=== PATIENT | male | born 1960 | race Caucasian/White ===

== ENCOUNTER 2020-06-14 10:54 | Inpatient (IN) | payer OTHER ==
[~2020-06-14] VITALS: Ht 172.7 cm; Wt 73.5 kg
[2020-06-14] MEDS ORDERED: PLAVIX75 MG PO (11:35)
[2020-06-14] MEDS ORDERED: ASPIRIN EC81 MG PO (11:35)
[2020-06-14] MEDS ORDERED: ATORVASTATIN CA40 MG PO (11:35)
[2020-06-14 11:36] LABS: HEMOGLOBIN 14.6 gm/dl (14.0-17.5); RED BLOOD COUNT 4.47 M/UL (4.20-5.50); WHITE BLOOD COUNT 9.7 K/UL (4.5-11.0)
[2020-06-14] MEDS ORDERED: IBUPROFEN200 M1 PO (11:36)
[2020-06-14] MEDS ORDERED: LISINOPRIL2.5 MG PO (11:36)
[2020-06-14] MEDS ORDERED: GLUCOPHAGE 500500 MG PO (11:36)
[2020-06-14] MEDS ORDERED: PROCARDIA XL90 MG PO (11:37)
[2020-06-14 12:01] LABS: BUN/CREATININE RATIO 15 (0-10)
[2020-06-14] MEDS ORDERED: HYDROCODON-ACE1 EAC4 PO (13:55)
[2020-06-15 06:02] LABS: HEMOGLOBIN 14.5 gm/dl (14.0-17.5); RED BLOOD COUNT 4.54 M/UL (4.20-5.50); WHITE BLOOD COUNT 9.9 K/UL (4.5-11.0)
[2020-06-15 06:27] LABS: BUN/CREATININE RATIO 16 (0-10)
--- NOTE | 2020-06-15 10:50 | NUR ---
0957 CALLED LAB TO CHECK ON PTTHP FOR PATIENT SAID HE WAS RUNNING IT NOW.
--- NOTE | 2020-06-15 17:55 | NUR ---
1000- SPOKE WITH [facility] ABOUT THE PTTHP DUE . THEY ARE SHORT HANDED AND WILL HAVE RESULTS SOON POSSIBLE.
--- NOTE | 2020-06-15 17:56 | NUR ---
8938- SPOKE WITH LAB ABOUT NOT HAVING THE PTTHP FOR THE HEPRIN PROTOCOL IT WAS DRAWN AT 1630 BUT STILL NOT RESULTS YET. PER LAB NOT RUN YET WILL GET RESULTS SOON POSSIBLE
[2020-06-16 10:32] LABS: HEMOGLOBIN 15.1 gm/dl (14.0-17.5); RED BLOOD COUNT 4.72 M/UL (4.20-5.50)
[2020-06-16 10:33] LABS: WHITE BLOOD COUNT 12.7 K/UL (4.5-11.0)
[2020-06-16 10:47] LABS: BUN/CREATININE RATIO 19 (0-10)
[2020-06-17 06:18] LABS: RED BLOOD COUNT 4.69 M/UL (4.20-5.50)
[2020-06-17 06:28] LABS: WHITE BLOOD COUNT 8.7 K/UL (4.5-11.0)
[2020-06-17 06:59] LABS: BUN/CREATININE RATIO 25 (0-10)
[2020-06-18 06:25] LABS: HEMOGLOBIN 13.8 gm/dl (14.0-17.5); RED BLOOD COUNT 4.32 M/UL (4.20-5.50); WHITE BLOOD COUNT 9.7 K/UL (4.5-11.0)
[2020-06-18 07:12] LABS: BUN/CREATININE RATIO 17 (0-10)
--- NOTE | 2020-06-18 12:20 | NUR ---
PT CAME UP FROM ICU VIA STRETCHER. PT IS STABLE AND RESTING IN THE BED WITH NO COMPLAINTS OF PAIN. WCTM
[2020-06-18] MEDS ORDERED: ELIQUIS 5 MG TAB5 MG PO (15:11)
[2020-06-18] MEDS ORDERED: AUGMENTIN 875-1 EACH PO (15:11)
[2020-06-18] MEDS ORDERED: LOPRESSOR 25 MG25 MG PO (15:11)
[2020-06-18] MEDS ORDERED: PERCOCET 7.5-31 EACH PO ×2 (16:16→16:33)
[2020-06-18] MEDS ORDERED: AMBIEN5 MG PO (16:16)
[2020-06-18] MEDS ORDERED: BETADINE30 ML TOP (16:16)
[2020-06-18] MEDS ORDERED: LISINOPRIL10 MG PO (16:17)
[2020-07-01] MEDS ORDERED: PERCOCET 7.5-31 EACH PO (18:35)
[2020-07-01] MEDS ORDERED: BETAPACE 80MG T80 MG PO (18:35)
[2020-07-01] MEDS ORDERED: CLEOCIN HCL300 MG PO (18:35)
[2020-07-01] MEDS ORDERED: LEVOFLOXACIN500 MG PO (18:35)
== END 2020-06-18 17:30 | disposition home or self-care (01) | DRG 254 ==
LOC: MED SURG 4 10:54 → CCU 06-17 12:32 → M/S 06-18 11:31
PROVIDERS: Internal Medicine; Physician Assistant; Surgery; ADMIT Family Medicine
PROC: 047J3Z1 Dilation of Left External Iliac Artery using Drug-Coated Balloon, Percutaneous Approach (ICD-10-PCS; 2020-06-17)
PROC: B41G1ZZ Fluoroscopy of Left Lower Extremity Arteries using Low Osmolar Contrast (ICD-10-PCS; 2020-06-17)
PROC: B41F1ZZ Fluoroscopy of Right Lower Extremity Arteries using Low Osmolar Contrast (ICD-10-PCS; 2020-06-17)
PROC: 047W3ZZ Dilation of Left Foot Artery, Percutaneous Approach (ICD-10-PCS; principal; 2020-06-17 13:43)
DX: E11.51 Type 2 diabetes mellitus with diabetic peripheral angiopathy without gangrene (principal); R01.1 Cardiac murmur, unspecified; I10 Essential (primary) hypertension; E78.5 Hyperlipidemia, unspecified; F17.210 Nicotine dependence, cigarettes, uncomplicated; Z89.022 Acquired absence of left finger(s); Z98.41 Cataract extraction status, right eye; Z96.1 Presence of intraocular lens; Z79.84 Long term (current) use of oral hypoglycemic drugs; Z79.82 Long term (current) use of aspirin; Z79.899 Other long term (current) drug therapy; Z80.7 Family history of other malignant neoplasms of lymphoid, hematopoietic and related tissues; Z83.6 Family history of other diseases of the respiratory system; Z82.49 Family history of ischemic heart disease and other diseases of the circulatory system; Z83.3 Family history of diabetes mellitus; Z84.89 Family history of other specified conditions; I44.7 Left bundle-branch block, unspecified; I77.1 Stricture of artery; Z20.828 Contact with and (suspected) exposure to other viral communicable diseases; Z88.6 Allergy status to analgesic agent; I70.235 Atherosclerosis of native arteries of right leg with ulceration of other part of foot; E11.42 Type 2 diabetes mellitus with diabetic polyneuropathy; E87.6 Hypokalemia; B35.1 Tinea unguium; G47.00 Insomnia, unspecified; L03.031 Cellulitis of right toe; I08.1 Rheumatic disorders of both mitral and tricuspid valves
CPT/HCPCS: ECHO; 36415; 71045; 73630; 73718; 76000; 78452; 80048; 80053; 80061; 82550; 82553; 82962; 83036; 83605; 83735; 84443; 84484; 85025; 85027; 85610; 85730; 86140; 86850; 86900; 86901; 93005; 93017; 93306; 93926; 99406; A9502; C1725; C1769; C2623; J0690; J0696; J1644; J2001; J2250; J2270; J2405; J2704; J2710; J2720; J2785; J3010; J7030; J7040; J7050; J7120; Q9962; U0002; U0003

== ENCOUNTER → 2020-07-07 | Outpatient (CLI) | payer OTHER ==
[~2020-07-07] MED LIST: AMBIEN5 MG PO; ASPIRIN EC81 MG PO; ATORVASTATIN CA40 MG PO; AUGMENTIN 875-1 EACH PO; BETADINE30 ML TOP; BETAPACE 80MG T80 MG PO; BUPROPION HCL150 MG PO; CLEOCIN HCL300 MG PO; ELIQUIS 5 MG TAB5 MG PO; ELIQUIS5 MG PO; ENOXAPARIN SQ; GLUCOPHAGE 500500 MG PO; HYDROCODON-ACE1 EAC4 PO; IBUPROFEN200 M1 PO; LEVOFLOXACIN500 MG PO; LISINOPRIL10 MG PO; LISINOPRIL2.5 MG PO; LISINOPRIL40 MG PO; LOPRESSOR 25 MG25 MG PO; METFORMIN HCL500 MG PO; METOPROLOL TART25 MG PO; NICOTINE PATCH TP; NICOTINE PATCH1 EAC1 TD; PERCOCET 7.5-31 EACH PO; PLAVIX75 MG PO; PROCARDIA XL90 MG PO; SOTALOL80 MG PO; VIBRAMYCIN 100100 MG PO
== END ==
LOC: WCC 11:00
PROC: 0JBQ0ZZ Excision of Right Foot Subcutaneous Tissue and Fascia, Open Approach (ICD-10-PCS; principal; 2020-07-07)
DX: L97.511 Non-pressure chronic ulcer of other part of right foot limited to breakdown of skin (principal); Z88.4 Allergy status to anesthetic agent

== ENCOUNTER → 2020-07-09 | Outpatient (CLI) | payer OTHER | LOC: WCC 11:02 | DX: S91.104A Unspecified open wound of right lesser toe(s) without damage to nail, initial encounter (principal); X58.XXXA Exposure to other specified factors, initial encounter | CPT/HCPCS: G0463 ==

== ENCOUNTER → 2020-07-14 | Outpatient (CLI) | payer OTHER | LOC: WCC 11:00 | DX: E11.621 Type 2 diabetes mellitus with foot ulcer (principal); L97.519 Non-pressure chronic ulcer of other part of right foot with unspecified severity; E11.51 Type 2 diabetes mellitus with diabetic peripheral angiopathy without gangrene; I70.201 Unspecified atherosclerosis of native arteries of extremities, right leg; F17.290 Nicotine dependence, other tobacco product, uncomplicated; I10 Essential (primary) hypertension ==

== ENCOUNTER → 2020-07-21 | Outpatient (CLI) | payer OTHER | LOC: WCC 11:16 | DX: E11.621 Type 2 diabetes mellitus with foot ulcer (principal); L97.511 Non-pressure chronic ulcer of other part of right foot limited to breakdown of skin | CPT/HCPCS: G0463 ==

== ENCOUNTER → 2020-08-18 | Outpatient (CLI) | payer OTHER ==
[2020-08-18 11:57] LABS: HEMOGLOBIN 16.5 gm/dl (14.0-17.5); RED BLOOD COUNT 5.14 M/UL (4.20-5.50); WHITE BLOOD COUNT 13.2 K/UL (4.5-11.0)
[2020-08-18 12:19] LABS: BUN/CREATININE RATIO 21 (0-10)
== END ==
LOC: OPSV2 11:00
PROVIDERS: Surgery
DX: Z01.818 Encounter for other preprocedural examination (principal)
CPT/HCPCS: 36415; 71046; 80053; 81001; 85025; 85610; 85730; 86850; 86900; 86901; 86920; 93005

== ENCOUNTER 2020-08-19 06:15 | Inpatient (IN) | payer OTHER ==
[~2020-08-19] VITALS: Ht 170.2 cm; Wt 70.3 kg
[~2020-08-19 06:15] MED LIST changes: -BUPROPION HCL150 MG PO; -ELIQUIS5 MG PO; -ENOXAPARIN SQ; -LISINOPRIL40 MG PO; -METFORMIN HCL500 MG PO; -METOPROLOL TART25 MG PO; -NICOTINE PATCH TP; -NICOTINE PATCH1 EAC1 TD; -SOTALOL80 MG PO; -VIBRAMYCIN 100100 MG PO
[2020-08-19] MEDS ORDERED: ASPIRIN EC81 MG PO (08:57)
[2020-08-19] MEDS ORDERED: BUPROPION HCL150 MG PO (08:58)
[2020-08-19] MEDS ORDERED: METOPROLOL TART25 MG PO (08:58)
[2020-08-19] MEDS ORDERED: LISINOPRIL40 MG PO (08:59)
[2020-08-19] MEDS ORDERED: ATORVASTATIN CA40 MG PO (08:59)
[2020-08-19] MEDS ORDERED: METFORMIN HCL500 MG PO (08:59)
[2020-08-19] MEDS ORDERED: SOTALOL80 MG PO (09:00)
[2020-08-19] MEDS ORDERED: ENOXAPARIN SQ (09:01)
[2020-08-19] MEDS ORDERED: ELIQUIS5 MG PO (09:02)
[2020-08-19] MEDS ORDERED: NICOTINE PATCH TP (09:02)
[2020-08-19] MEDS ORDERED: NICOTINE PATCH1 EAC1 TD (18:10)
[2020-08-19 18:41] LABS: HEMOGLOBIN 12.7 gm/dl (14.0-17.5); WHITE BLOOD COUNT 17.1 K/UL (4.5-11.0)
[2020-08-19 18:58] LABS: BUN/CREATININE RATIO 20 (0-10)
[2020-08-19 20:33] LABS: HEMOGLOBIN 12.2 gm/dl (14.0-17.5); RED BLOOD COUNT 3.88 M/UL (4.20-5.50); WHITE BLOOD COUNT 20.9 K/UL (4.5-11.0)
[2020-08-20 05:22] LABS: HEMOGLOBIN 13.1 gm/dl (14.0-17.5); RED BLOOD COUNT 4.19 M/UL (4.20-5.50)
[2020-08-20 05:23] LABS: WHITE BLOOD COUNT 30.3 K/UL (4.5-11.0)
--- NOTE | 2020-08-20 06:51 | NUR ---
PT EXPERIENCED SIGNIFICANT BLOOD LOSS, UNSTABLE BP, POSSIBLE RT GROIN HEMATOMA RADIATING RLQ PAIN AND DIAPHORESIS. IN CONVERSATION MULTIPLE TIMES WITH DR. MANCILLA. ORDERS RECEIVED NUMEROUS TIMES (SEE ORDERS FOR DETAILS) AND DR. MANCILLA CAME BEDSIDE AROUND 0100 TO ASSESS PT AND GIVE FURTHER ORDERS. RT GROIN WOUND WAS UNWRAPPED, REDRESSED AND FURTHER PRESSURE DRESSING WAS APPLIED TO GROIN AREA.
--- NOTE | 2020-08-20 06:54 | NUR ---
AT APPROXIMATELY 1235 DR. MANCILLA WAS CONTACTED R/T POSSIBLE HEMATOMA TO R GROIN. AT HER DIRECTION A PRESSURE DRESSING WAS APPLIED.
[2020-08-21 07:48] LABS: BUN/CREATININE RATIO 21 (0-10)
[2020-08-21 08:29] LABS: HEMOGLOBIN 8.6 gm/dl (14.0-17.5); RED BLOOD COUNT 2.85 M/UL (4.20-5.50); WHITE BLOOD COUNT 12.4 K/UL (4.5-11.0)
[2020-08-22 03:18] LABS: RED BLOOD COUNT 2.58 M/UL (4.20-5.50)
[2020-08-22 03:23] LABS: WHITE BLOOD COUNT 8.6 K/UL (4.5-11.0)
--- NOTE | 2020-08-22 16:00 | NUR ---
DR MANCILLA WAS ATTEMPTED TO BE CALLED AROUND 1230 TO VERIFY THAT THE PATIENT WAS ALLOWED TO BE AMBULATING IN THE ROOM. ONCE I FOUND THAT THE PATIENT WAS ONLY TO BE ON BEDREST FOR ONE NIGHT THE WE THEN STARTED WALKING THE PATIENT. THE PATIENTS RIGHT FOOT AND HIS FOURTH TOE OVER STARTED BLEEDING THROUGH HIS SOCK. I WENT TO CALL A DOCTOR AGAIN TO SEE IF THERE WAS SOMETHING SHE WANTED ME TO DO FOR IT. I CALLED AGAIN AND THE PHONE WENT TO VOICEMAIL LIKE IT DID EARLIER WHEN I CALLED AND THE VLOCEMAIL WAS FULL. I WAS UNABLE TO LEAVE A MESSAGE SO I THEN WENT TO MY EVENT ORGANIZER TO LET HER KNOW THAT WAS THE ONLY DOCTOR ON HIS CASE AND THAT I COULDNT GET AHOLD OF HER FOR THE PATIENTS FOOT. A LAST RESORT I TEXTED THE CELL NUMBER THAT SHE HAD ON FILE. I HAD HER CALL THE HOSPITAL AND THEN I LET HER KNOW WHAT WAS GOING ON. SHE THEN TOLD ME TO CALL THE PHARMACY TO MAKE SURE THAT HER PA CALLED IN HER PRECRIPTIONS IN. AND TO CHANGE THE ADMISSION TO A HOSPITALIST. AND TO CONSULT . SHE MENTIONED THAT THE PATIENT WAS SUPPOSED TO BE GOING HOME TODAY. I LOOKED IN THE CHART AND THERE WAS NO DC ORDERS IN THE CHART. SHE THEN ASKED IF THE PATIENT WANTED TO STAY ANOTHER DAY AND HE SAID HE WOULD FEEL SAFER IF HE GOT TO STAY ANOTHER NIGHT DUE TO HIS FOOT STARTING TO BLEED. I THEN CALLED AND GOT CLEARANCE FROM TO CONSULT AND WHAT TO DO FOR THE CONSULT. DR BAZAN WAS CONSULT AND CALLED ABOUT THE PATIENT AND THE SITUATION.
--- NOTE | 2020-08-22 22:24 | NUR ---
2009- PATIENT IS OOZING BLOOD AT THE RIGHT GROIN SITE. MD ORDERED FOR Q30M CHECKS X3 TIMES WITH BLOOD PRESSURES WELL. PATIENT'S BLEEDING HAS BEEN MARKED, BLOOD PRESSURE SET FOR 30 MINUTES AUTOMATICALLY AND GAUZE APPLIED TO SEE IF BLEEDING WORSENS. AT THIS TIME, PATIENT HAS NO COMPLAINTS AND BLOOD PRESSURE IS 160/78 WITH A MAP OF 99. 2040- NO ADDITIONAL BLEEDING NOTED. PATIENT IS ALERT AND HAS NO COMPLAINTS AT THIS TIME. BLOOD PRESSURE CURRENTLY 134/113 WITH A MAP OF 118. 2110- PATIENT ALERT AND ORIENTED WITH NO COMPLAINTS STATED. SITE HAS NO ADDITIONAL BLEEDING OUTSIDE OF MARKING OR ON GAUZE. BLOOD PRESSURE IS 143/71 WITH A MAP OFF 88. TO NOTE, PATIENT WAS GIVEN BLOOD PRESSURE MEDICATION AND PAIN MEDICATION AFTERWARD.
[2020-08-23 02:20] LABS: HEMOGLOBIN 8.2 gm/dl (14.0-17.5); RED BLOOD COUNT 2.55 M/UL (4.20-5.50); WHITE BLOOD COUNT 8.2 K/UL (4.5-11.0)
[2020-08-26 15:44] LABS: HEMOGLOBIN 9.6 gm/dl (14.0-17.5); RED BLOOD COUNT 3.04 M/UL (4.20-5.50); WHITE BLOOD COUNT 8.3 K/UL (4.5-11.0)
[2020-08-26 16:01] LABS: BUN/CREATININE RATIO 29 (0-10)
[2020-08-27 04:19] LABS: HEMOGLOBIN 9.1 gm/dl (14.0-17.5); RED BLOOD COUNT 2.9 M/UL (4.20-5.50); WHITE BLOOD COUNT 8.5 K/UL (4.5-11.0)
[2020-08-27 04:24] LABS: BUN/CREATININE RATIO 25 (0-10)
--- NOTE | 2020-08-27 17:03 | NUR ---
VANCOMYCIN 250ML @ 125 ML AND HR STARTED UPON ARRIVAL BACK ON THE FLOOR
--- NOTE | 2020-08-28 00:31 | NUR ---
pt complains of pain unrelieved by current pain medication. notified dr agee. recieved no new orders at this time. dr. agee did say he would look into it though. will continue to monitor.
[2020-08-28 04:33] LABS: HEMOGLOBIN 9.8 gm/dl (14.0-17.5); RED BLOOD COUNT 3.15 M/UL (4.20-5.50); WHITE BLOOD COUNT 10.2 K/UL (4.5-11.0)
[2020-08-28 04:48] LABS: BUN/CREATININE RATIO 23 (0-10)
[2020-08-29 06:03] LABS: BUN/CREATININE RATIO 14 (0-10)
[2020-08-29] MEDS ORDERED: VIBRAMYCIN 100100 MG PO (18:04)
[2020-08-29] MEDS ORDERED: AUGMENTIN 875-1 EACH PO (18:04)
== END 2020-08-29 19:19 | disposition home or self-care (01) | DRG 854 ==
LOC: PROG CARE 06:15 → CCU 06:15 → MED SURG 4 06:15 → ZOBSOF 06:15 → CCU 17:49 → PROG CARE 08-21 17:48 → MED SURG 4 08-25 17:01
PROVIDERS: Internal Medicine; Physician Assistant Medical; ADMIT Surgery
PROC: 04UK0KZ Supplement Right Femoral Artery with Nonautologous Tissue Substitute, Open Approach (ICD-10-PCS; 2020-08-19)
PROC: 041K09L Bypass Right Femoral Artery to Popliteal Artery with Autologous Venous Tissue, Open Approach (ICD-10-PCS; 2020-08-19)
PROC: 30233N1 Transfusion of Nonautologous Red Blood Cells into Peripheral Vein, Percutaneous Approach (ICD-10-PCS; 2020-08-19)
PROC: 04CK0ZZ Extirpation of Matter from Right Femoral Artery, Open Approach (ICD-10-PCS; principal; 2020-08-19 11:45)
PROC: 0Y6V0Z0 Detachment at Right 4th Toe, Complete, Open Approach (ICD-10-PCS; 2020-08-27)
PROC: 0Y6X0Z0 Detachment at Right 5th Toe, Complete, Open Approach (ICD-10-PCS; 2020-08-27)
PROC: 0HBNXZZ Excision of Left Foot Skin, External Approach (ICD-10-PCS; 2020-08-29)
PROC: 0HBMXZZ Excision of Right Foot Skin, External Approach (ICD-10-PCS; 2020-08-29)
PROC: 0HBRXZZ Excision of Toe Nail, External Approach (ICD-10-PCS; 2020-08-29)
PROC: 0HBRXZZ Excision of Toe Nail, External Approach (ICD-10-PCS; 2020-08-29)
PROC: 0HBRXZZ Excision of Toe Nail, External Approach (ICD-10-PCS; 2020-08-29)
PROC: 0HBRXZZ Excision of Toe Nail, External Approach (ICD-10-PCS; 2020-08-29)
PROC: 0HBRXZZ Excision of Toe Nail, External Approach (ICD-10-PCS; 2020-08-29)
PROC: 0HBRXZZ Excision of Toe Nail, External Approach (ICD-10-PCS; 2020-08-29)
PROC: 0HBRXZZ Excision of Toe Nail, External Approach (ICD-10-PCS; 2020-08-29)
PROC: 0HBRXZZ Excision of Toe Nail, External Approach (ICD-10-PCS; 2020-08-29)
DX: A41.9 Sepsis, unspecified organism (principal); I70.261 Atherosclerosis of native arteries of extremities with gangrene, right leg; D62 Acute posthemorrhagic anemia; N17.9 Acute kidney failure, unspecified; L03.115 Cellulitis of right lower limb; L97.419 Non-pressure chronic ulcer of right heel and midfoot with unspecified severity; I10 Essential (primary) hypertension; E78.5 Hyperlipidemia, unspecified; F17.210 Nicotine dependence, cigarettes, uncomplicated; E11.51 Type 2 diabetes mellitus with diabetic peripheral angiopathy without gangrene; E11.621 Type 2 diabetes mellitus with foot ulcer; L85.9 Epidermal thickening, unspecified; B35.1 Tinea unguium; E11.65 Type 2 diabetes mellitus with hyperglycemia; Z88.8 Allergy status to other drugs, medicaments and biological substances; Z89.022 Acquired absence of left finger(s); Z98.890 Other specified postprocedural states; Z83.6 Family history of other diseases of the respiratory system; Z83.3 Family history of diabetes mellitus; Z82.49 Family history of ischemic heart disease and other diseases of the circulatory system; Z79.84 Long term (current) use of oral hypoglycemic drugs; I44.7 Left bundle-branch block, unspecified; Z86.19 Personal history of other infectious and parasitic diseases; J44.9 Chronic obstructive pulmonary disease, unspecified; Z95.0 Presence of cardiac pacemaker; Z79.01 Long term (current) use of anticoagulants; Z79.82 Long term (current) use of aspirin; Z98.49 Cataract extraction status, unspecified eye
CPT/HCPCS: 36415; 36430; 71046; 80048; 80053; 80202; 81001; 82962; 83735; 85025; 85027; 85610; 85730; 86850; 86900; 86901; 86920; 93005; C1768; C1877; J0610; J0690; J1170; J1580; J1644; J1650; J2001; J2185; J2250; J2270; J2370; J2405; J2704; J2710; J2720; J2795; J3010; J3370; J7030; J7040; J7050; J7070; J7120; P9016; P9047; Q4133; Q9962

== ENCOUNTER 2020-09-02 07:05 | Emergency (ER) | payer OTHER ==
[~2020-09-02 07:05] MED LIST changes: +BUPROPION HCL150 MG PO; +ELIQUIS5 MG PO; +ENOXAPARIN SQ; +LISINOPRIL40 MG PO; +METFORMIN HCL500 MG PO; +METOPROLOL TART25 MG PO; +NICOTINE PATCH TP; +NICOTINE PATCH1 EAC1 TD; +SOTALOL80 MG PO; +VIBRAMYCIN 100100 MG PO
== END 2020-09-02 08:28 | disposition home or self-care (01) ==
LOC: ER1 07:05
DX: M79.651 Pain in right thigh (principal); Z48.01 Encounter for change or removal of surgical wound dressing; E11.9 Type 2 diabetes mellitus without complications; I10 Essential (primary) hypertension; F17.210 Nicotine dependence, cigarettes, uncomplicated; Z79.84 Long term (current) use of oral hypoglycemic drugs
CPT/HCPCS: 99282

== ENCOUNTER → 2020-11-11 | Day surgery (SDC) | payer OTHER | END | disposition home or self-care (01) | LOC: OR 07:05 | DX: Z12.11 Encounter for screening for malignant neoplasm of colon (principal); D12.4 Benign neoplasm of descending colon; K57.30 Diverticulosis of large intestine without perforation or abscess without bleeding; K64.0 First degree hemorrhoids; I10 Essential (primary) hypertension; E78.5 Hyperlipidemia, unspecified; I48.91 Unspecified atrial fibrillation; Z95.1 Presence of aortocoronary bypass graft; Z87.891 Personal history of nicotine dependence; Z80.0 Family history of malignant neoplasm of digestive organs; Z88.4 Allergy status to anesthetic agent; Z79.01 Long term (current) use of anticoagulants; Z79.82 Long term (current) use of aspirin; Z79.899 Other long term (current) drug therapy | CPT/HCPCS: 82962; J2704; J7040 ==

== ENCOUNTER → 2021-08-21 | Outpatient (CLI) | payer BC ==
[2021-08-21 11:43] LABS: HEMOGLOBIN 14.6 gm/dl (14.0-17.5); RED BLOOD COUNT 4.57 M/UL (4.20-5.50); WHITE BLOOD COUNT 9.2 K/UL (4.5-11.0)
[2021-08-21 12:13] LABS: BUN/CREATININE RATIO 22 (0-10)
== END ==
LOC: LAB 10:34
PROVIDERS: Surgery
DX: Z01.812 Encounter for preprocedural laboratory examination (principal)
CPT/HCPCS: 36415; 80048; 85027; 85610

== ENCOUNTER → 2022-03-16 | Outpatient (CLI) | payer OTHER | LOC: EXRD 08:31 | DX: E05.90 Thyrotoxicosis, unspecified without thyrotoxic crisis or storm (principal) | CPT/HCPCS: 76536 ==